=== PATIENT | female | born 1960 | race Caucasian/White ===

== ENCOUNTER 2017-09-04 13:01 | Observation (INO) | payer MEDICARE ==
[~2017-09-04 13:01] MED LIST: BACL10TA PO; BUPR300T OR; CIPR500T4 PO; CLAR10TA7 PO; CLON0.5T PO; ESTR0.059 T-DERMAL; EXAL8TAB PO; FLEX10TA PO; HYDR2TAB PO; IBUP600T26 PO; LISI-363 PO; MAXA10TA2 PO; MISC1CAP4 PO; ONDA4TAB7 PO; PROT40TA PO; SENN8.6T8 PO; URIB118C PO; VENL-39 PO; VITA500015 CHEW; [UNRECOGNIZED DRUG - CODE] PO; [UNRECOGNIZED DRUG - CODE] SC; [UNRECOGNIZED DRUG - OTHER]; [UNRECOGNIZED DRUG - REMARK] INJ
[2017-09-04 13:10] VITALS: BP 125/70; PULSE 89; RESP 20; TEMP 98.1; O2SAT 97
[2017-09-04] MEDS ORDERED: AMIT75TA2 PO (13:21)
[2017-09-04] MEDS ORDERED: BACL10TA PO (13:21)
[2017-09-04] MEDS ORDERED: VITA100064 PO (13:21)
[2017-09-04] MEDS ORDERED: LISI-515 PO (13:21)
[2017-09-04] MEDS ORDERED: PANT40TA3 PO (13:21)
[2017-09-04] MEDS ORDERED: VENL75TA2 PO (13:21)
[2017-09-04] MEDS ORDERED: BOTU100P I-DERMAL (13:21)
[2017-09-04] MEDS ORDERED: DOCU100C PO (13:21)
[2017-09-04] MEDS ORDERED: MAGN500T2 PO (13:21)
[2017-09-04] MEDS ORDERED: RIZA10TA2 PO (13:21)
[2017-09-04] MEDS ORDERED: MELA3TAB23 PO (13:21)
[2017-09-04] MEDS ORDERED: ONDA1TAB17 PO (13:21)
[2017-09-04] MEDS ORDERED: HYDR4TAB PO (13:21)
[2017-09-04] MEDS ORDERED: ESTR0.5T PO (13:21)
[2017-09-04] MEDS ORDERED: NITR100C4 PO (13:21)
[2017-09-04 13:24] VITALS: O2SAT 98
[2017-09-04] MEDS ORDERED: SODIUM CHLORIDE 0.9% FLUSH 10 ML FLUSH IVF PRN (13:30)
--- NOTE | 2017-09-04 13:37 | PD ---
HPI Chief Complaint: Chest Pain Time Seen by Provider: 13:12 Travel History International Travel<30 days: No Contact w/Intl Traveler<30days: No Traveled to known affect area: No History of Present Illness HPI The patient is a 56 yo female with PMH of interstitial nephritis, chronic pain, and GERD presenting to the ED with retrosternal chest pain radiating to the back. The patient states the pain is sharp and started this morning. She can't recall anything that makes it better or worse. She states that this pain is different than her chronic pain and it does not feel like reflux. She denies history of pancreatis and family history of GI malignancy. She denies fever, diaphoresis, palpitations, visual changes, diplopia, and new focal/neurological deficits. PMH: Interstitial nephritis, GERD, chronic pain Social: Denies alcohol, tobacco, illicit drug use Family: Denies family history of CAD Surgical: No history of heart cath, stent placement, or valve replacement PFSH Past Medical History Anxiety: Yes (PANIC ATTACKS) Depression: Yes Heart Rhythm Problems: No Cardiac Catheterization: No Cardiovascular Problems: No High Cholesterol: Yes Congestive Heart Failure: No Diabetes: No Diminished Hearing: No GERD: Yes Genitourinary: Yes (INTERSTITIAL CYSTITIS, HAS STENTS) Hiatal Hernia: Yes Hypertension: Yes Musculoskeletal: Yes (COMPOUND FRACTURE RIGHT ARM) Neurologic: Yes (SHINGLES) Integumentary: Yes (SHINGLES 06/28) Migraines: Yes ?: Not Past Surgical History Body Medical Devices: INTERCYSTICIAL CYSTITIS Section: Yes Coronary Artery Bypass Graft: No Genitourinary Surgery: Yes (BLADDER SURGERY FOR DISTENTION ) Hysterectomy: Yes () Tonsillectomy: Yes Other Surgery: Yes (implanted bilateral back stiumlators ) Social History Alcohol Use: No Tobacco Use: No Substance Use: No Allergies-Medications (Allergen,Severity, Reaction): Coded Allergies: Sulfa (Sulfonamide Antibiotics) (Unverified Allergy, Severe, BLISTERS ENTIRE BODY, 07/07/17) codeine (Unverified Allergy, Severe, MIGRAINE HEADACHE, 07/07/17) penicillin G (Unverified Allergy, Severe, BLISTERS ENTIRE BODY, 07/07/17) topiramate (Unverified Allergy, Severe, HIVE, 07/07/17) promethazine (Unverified Allergy, Mild, 07/07/17) vancomycin (Unverified Allergy, Mild, 07/07/17) morphine (Verified Allergy, Unknown, 09/04/17) adhesive (Unverified Adverse Reaction, Intermediate, BLISTERS, 07/07/17) Reported Meds & Prescriptions Reported Meds & Active Scripts Active Reported Venlafaxine ER 24 HR (Venlafaxine HCl) 75 Mg Tab 75 Mg PO DAILY Rizatriptan (Rizatriptan Benzoate) 10 Mg Tab 1 Tab PO DAILY PRN Pantoprazole (Pantoprazole Sodium) 40 Mg Tab 40 Mg PO DHS Ondansetron (Ondansetron HCl) 8 Mg Tab 8 Mg PO BID PRN Botox Inj (Onabotulinumtoxina) 100 Unit Inj 200 Units I-DERMAL EVERY 3 MONTHS Nitrofurantoin Monohydrate Macrocrystals (Nitrofurantoin Monoh/Nitrofur Macro) 100 Mg Cap 100 Mg PO BID Melatonin Cr (Melatonin) 3 Mg Tab 1 Tab PO HS Magnesium Oxide 500 Mg Tab 500 Mg PO HS Lisinopril 20 Mg Tab 20 Mg PO DAILY Hydromorphone (Hydromorphone HCl) 4 Mg Tab 4 Mg PO Q6H PRN Estradiol 0.5 Mg Tab 0.5 Mg PO DAILY Docusate Sodium 100 Mg Cap 200 Mg PO BID Vitamin D3 (Cholecalciferol) 1,000 Unit Tab 1,000 Units PO DAILY Baclofen 10 Mg Tab 10 Mg PO TID Amitriptyline (Amitriptyline HCl) 75 Mg Tab 75 Mg PO HS Review of Systems Except as stated in HPI: all other systems reviewed are Neg General / Constitutional: No: Fever Physical Exam Narrative GENERAL: WNWD, 56F, NAD SKIN: Warm and dry. HEAD: Atraumatic. Normocephalic. EYES: Pupils equal and round. No scleral icterus. No injection or drainage. ENT: No nasal bleeding or discharge. Mucous membranes pink and moist. NECK: Trachea midline. No JVD. No carotid bruits CARDIOVASCULAR: Regular rate and rhythm. S1 and S2 appreciated RESPIRATORY: No accessory muscle use. Clear to auscultation. Breath sounds equal bilaterally. GASTROINTESTINAL: Abdomen soft, non-tender, nondistended. Hepatic and splenic margins not palpable. MUSCULOSKELETAL: Extremities without clubbing, cyanosis, or edema. No obvious deformities. NEUROLOGICAL: Awake and alert. No obvious cranial nerve deficits. Motor grossly within normal limits. Five out of 5 muscle strength in the arms and legs. Normal speech. PSYCHIATRIC: Appropriate mood and affect; insight and judgment normal. Data Data Last Documented VS Vital Signs Date Time Temp Pulse Resp B/P (MAP) Pulse Ox O2 Delivery O2 Flow Rate FiO2 09/04/17 14:08 80 18 122/80 (94) 96 09/04/17 13:24 Nasal Cannula 2.00 09/04/17 13:10 98.1 VS reviewed Orders Orders Electrocardiogram (09/04/17:) Ckmb (Isoenzyme) Profile (09/04/17:) Complete Blood Count With Diff (09/04/17) Comprehensive Metabolic Panel (09/04/17) Magnesium (Mg) (09/04/17) Prothrombin Time / Inr (Pt) (09/04/17) Act Partial Throm Time (Ptt) (09/04/17) Troponin I (09/04/17:) Lipase (09/04/17:) Chest, Single Ap (09/04/17:) Ecg Monitoring (09/04/17:) Iv Access Insert/Monitor (09/04/17:) Oximetry (09/04/17:) Oxygen Administration (09/04/17) Sodium Chloride 0.9% Flush (Ns Flush) (09/04/17:30) Admit Order (Ed Use Only) (09/04/17 ) Can Doffer / Telemetry YOSHI.Q8H (09/04/17 15:09) Diet 1999 Ada Cons Carb (09/04/17 Dinner) Activity Oob With Assistance (09/04/17 15:09) Labs Laboratory Tests Test 09/04/17 13:30 White Blood Count 8.2 TH/MM3 Red Blood Count 4.62 MIL/MM3 Hemoglobin 12.4 GM/DL Hematocrit 38.3 % Mean Corpuscular Volume 82.9 FL Mean Corpuscular Hemoglobin 26.8 PG Mean Corpuscular Hemoglobin Concent 32.3 % Red Cell Distribution Width 13.1 % Platelet Count 408 TH/MM3 Mean Platelet Volume 7.9 FL Neutrophils (%) (Auto) 50.2 % Lymphocytes (%) (Auto) 43.3 % Monocytes (%) (Auto) 4.2 % Eosinophils (%) (Auto) 1.4 % Basophils (%) (Auto) 0.9 % Neutrophils # (Auto) 4.1 TH/MM3 Lymphocytes # (Auto) 3.6 TH/MM3 Monocytes # (Auto) 0.3 TH/MM3 Eosinophils # (Auto) 0.1 TH/MM3 Basophils # (Auto) 0.1 TH/MM3 CBC Comment DIFF FINAL Differential Comment Prothrombin Time 10.2 SEC Prothromb Time International Ratio 0.9 RATIO Activated Partial Thromboplast Time 26.3 SEC Blood Urea Nitrogen 11 MG/DL Creatinine 0.82 MG/DL Random Glucose 111 MG/DL Total Protein 7.8 GM/DL Albumin 3.4 GM/DL Calcium Level 8.5 MG/DL Magnesium Level 2.4 MG/DL Alkaline Phosphatase 113 U/L Aspartate Amino Transf (AST/SGOT) 17 U/L Alanine Aminotransferase (ALT/SGPT) 22 U/L Total Bilirubin 0.2 MG/DL Sodium Level 137 MEQ/L Potassium Level 3.9 MEQ/L Chloride Level 100 MEQ/L Carbon Dioxide Level 29.9 MEQ/L Anion Gap 7 MEQ/L Estimat Glomerular Filtration Rate 73 ML/MIN Total Creatine Kinase 53 U/L Troponin I LESS THAN 0.02 NG/ML Lipase 156 U/L MDM Medical Decision Making Medical Screen Exam Complete: Yes Emergency Medical Condition: Yes Medical Record Reviewed: Yes Differential Diagnosis NSTEMI, unstable angina, coronary vasospasm, PE, PTX, aortic dissection, pericarditis, myocarditis, endocarditis, PNA, esophageal disease, aneurysm, musculoskeletal etiologies, anxiety, cocaine/sympathomimetic abuse Narrative Course CBC & BMP Diagram 09/04/17 13:30 Total Protein 7.8, Albumin 3.4, Calcium Level 8.5, Magnesium Level 2.4, Alkaline Phosphatase 113, Aspartate Amino Transf (AST/SGOT) 17, Alanine Aminotransferase (ALT/SGPT) 22, Total Bilirubin 0.2 Lipase 156 Tn < 0.02 EKG: sinus, rate 82, no ischemic change CXR: [facility] chest pain center evaluation considered most reasonable next step. pt agreeable with plan d/w Dr Jang Diagnosis Primary Impression: Chest pain Qualified Codes: R07.9 - Chest pain, unspecified Admitting Information Admitting Physician Requests: Observation Wu Lamb MD Sep 04, 2017 13:37
[2017-09-04 13:45] LABS: AUTOMATED NEUTROPHIL # 4.1 TH/MM3 (1.8-7.7); BASOPHIL # 0.1 TH/MM3 (0-0.2); BASOPHIL % 0.9 % (0.0-2.0); EOSINOPHIL # 0.1 TH/MM3 (0-0.4); EOSINOPHIL % 1.4 % (0.0-4.0); HEMATOCRIT 38.3 % (35.0-46.0); HEMO FLAGS DIFF FINAL; LYMPH % 43.3 % (9.0-44.0); LYMPHOCYTE # 3.6 TH/MM3 (1.0-4.8); MEAN CELL VOLUME 82.9 FL (80.0-100.0); MEAN CORPUSCULAR HEMOGLOBIN 26.8 PG (27.0-34.0); MEAN CORPUSCULAR HGB CONC 32.3 % (32.0-36.0); MONO % 4.2 % (0.0-8.0); NEUT % 50.2 % (16.0-70.0); PLATELET COUNT 408 TH/MM3 (150-450); RED BLOOD COUNT 4.62 MIL/MM3 (4.00-5.30); RED CELL DISTRIBUTION WIDTH 13.1 % (11.6-17.2); WHITE BLOOD COUNT 8.2 TH/MM3 (4.0-11.0)
[2017-09-04 13:50] LABS: CHLORIDE 100 MEQ/L (98-107); POTASSIUM 3.9 MEQ/L (3.5-5.1); SODIUM (NA) 137 MEQ/L (136-145)
[2017-09-04 13:54] LABS: ANION GAP 7 MEQ/L (5-15); BICARBONATE 29.9 MEQ/L (21.0-32.0); BLOOD UREA NITROGEN 11 MG/DL (7-18); MAGNESIUM 2.4 MG/DL (1.5-2.5)
[2017-09-04 13:56] LABS: APTT (PATIENT) 26.3 SEC (24.3-30.1); INTERNATIONAL NORMALIZED RATIO 0.9 RATIO; PROTHROMBIN TIME - PATIENT 10.2 SEC (9.8-11.6)
[2017-09-04 13:57] LABS: ALT (GPT) 22 U/L (10-53); AST (GOT) 17 U/L (15-37); GLOMERULAR FILTRATION RATE 73 ML/MIN (>89)
[2017-09-04 13:58] LABS: TOTAL BILIRUBIN ADULT 0.2 MG/DL (0.2-1.0)
[2017-09-04 14:00] LABS: ALKALINE PHOSPHATASE 113 U/L (45-117)
[2017-09-04 14:08] VITALS: BP 122/80; PULSE 80; RESP 18; O2SAT 96
[2017-09-04 14:12] LABS: CREATINE KINASE 53 U/L (26-192)
--- NOTE | 2017-09-04 14:41 | RADRPT ---
EXAM DATE/TIME: 09/04/2017 13:53 [place] COMPARISON: No previous studies available for comparison. INDICATIONS : Chest pain for one day. MEDICAL HISTORY : None. SURGICAL HISTORY : None. ENCOUNTER: Initial ACUITY: 1 day PAIN SCORE: 6/10 LOCATION: Bilateral upper chest FINDINGS: 2 portable frontal views of the chest demonstrate the lungs to be symmetrically aerated without evide nce of mass, infiltrate or effusion. The cardiomediastinal contours are unremarkable. Osseous struc tures are intact. CONCLUSION: Normal examination. Joon Gabriel Jr., MD on September 04, 2017 at 14:40 Board Certified Radiologist. This report was verified electronically.
[2017-09-04] MEDS ORDERED: SODIUM CHLORIDE 0.9% FLUSH 10 ML FLUSH IV FLUSH PRN ×2 (15:30)
[2017-09-04 15:49] VITALS: BP 122/77; PULSE 80; RESP 16; O2SAT 98
--- NOTE | 2017-09-04 15:53 | EKG ---
Date Performed: 09/04/2017 Time Performed: 13:10:44 PTAGE: 56 years EKG: Sinus rhythm LOW QRS VOLTAGE IN PRECORDIAL LEADS POSSIBLE RIGHT VENTRICULAR CONDUCTION DELAY BORDERLINE ECG INTER PRETATION BASED ON A DEFAULT AGE OF 40 YEARS Nonspecific T wave changes No significant change from pr ior electrocardiogram. NO PREVIOUS TRACING DOCTOR: Ag Marroquin Interpretating Date/Time 09/04/2017 15:53:06
[2017-09-04] MEDS ORDERED: DOXYCYCLINE HYCLATE 100 MG CAP PO SCH (16:15)
[2017-09-04] MEDS ORDERED: LIDOCAINE HCL 5% PATCH T-DERMAL ONE (17:00)
--- NOTE | 2017-09-04 17:02 | HHI.DCPOC ---
Discharge Care Plan Diagnosis: (1) Muscle spasm of left shoulder Additional Problems Alternate between ice and heat packs for muscle spasms of the back. If you develop any new symptoms including karlene chest pain or significant shortness of breath or lightheadedness please return to the emergency room. Goals to Promote Your Health * To prevent worsening of your condition and complications * To maintain your health at the optimal level Directions to Meet Your Goals Take your medications as prescribed Follow your dietary instruction Follow activity as directed Keep your appointments as scheduled Take your immunizations and boosters as scheduled If your symptoms worsen call your PCP, if no PCP go to Urgent Care Center or Emergency Room Smoking is Dangerous to Your Health. Avoid second hand smoke Call the 24-hour hour crisis hotline for domestic abuse at Dany Chapman MD Sep 04, 2017 17:02
--- NOTE | 2017-09-04 17:13 | HHI.HP ---
[facility] Service [place] [facility] Primary Care Physician Nancy Alfredo MD Admission Diagnosis Chest Pain Diagnoses: (1) Back pain Chief Complaint: Back pain Travel History International Travel<30 Days: No Contact w/Intl Traveler <30 Da: No Traveled to Known Affected Are: No History of Present Illness Written by Arron Castellon, acting as scribe for Dr. Chapman on 09/04/17 at 17:03. 56-year-old female with known history of interstitial cystitis, hypertension, hyperlipidemia, chronic pain, chronic narcotic use, gastroesophageal reflux who presented to the hospital because of back pain. Patient states that she is in normal state of health until she woke up this morning at 11:30 AM where she was suddenly awoke with a pain of 7/10 on a pain scale in the middle of her back between her scapulas. Patient states that she took 2 aspirin without any significant improvement. The patient decided come to emergency department for evaluation and by time she got to the ER she states that the pain was 5/10 on a pain scale. Patient denied any chest pain, nausea, vomiting, shortness of breath, dyspnea, diaphoresis, radiation of pain to the chest, neck. Patient states that the pain is specifically located between her shoulder blades along her spine. There is pain with movement. Patient was not given any medication in emergency department. When evaluating the patient her pain is now down to 2/10 on a pain scale. Patient with risk factors for cardiac etiology of age hypertension, hyperlipidemia. Patient states that she has not had a cardiac workup in the past. Review of Systems Musculoskeletal: COMPLAINS OF: Back pain Except as stated in HPI: all other systems reviewed are Neg Past Family Social History Past Medical History Interstitial cystitis Hypertension Hyperlipidemia Panic attacks Gastroesophageal reflux Chronic pain Chronic narcotic use Past Surgical History Hysterectomy Cataract surgery Bladder stimulators Back stimulator Bladder surgery Tonsillectomy Reported Medications Reported Meds & Active Scripts Active Reported Venlafaxine ER 24 HR (Venlafaxine HCl) 75 Mg Tab 75 Mg PO DAILY Rizatriptan (Rizatriptan Benzoate) 10 Mg Tab 1 Tab PO DAILY PRN Pantoprazole (Pantoprazole Sodium) 40 Mg Tab 40 Mg PO DHS Ondansetron (Ondansetron HCl) 8 Mg Tab 8 Mg PO BID PRN Botox Inj (Onabotulinumtoxina) 100 Unit Inj 200 Units I-DERMAL EVERY 3 MONTHS Nitrofurantoin Monohydrate Macrocrystals (Nitrofurantoin Monoh/Nitrofur Macro) 100 Mg Cap 100 Mg PO BID Melatonin Cr (Melatonin) 3 Mg Tab 1 Tab PO HS Magnesium Oxide 500 Mg Tab 500 Mg PO HS Lisinopril 20 Mg Tab 20 Mg PO DAILY Hydromorphone (Hydromorphone HCl) 4 Mg Tab 4 Mg PO Q6H PRN Estradiol 0.5 Mg Tab 0.5 Mg PO DAILY Docusate Sodium 100 Mg Cap 200 Mg PO BID Vitamin D3 (Cholecalciferol) 1,000 Unit Tab 1,000 Units PO DAILY Baclofen 10 Mg Tab 10 Mg PO TID Amitriptyline (Amitriptyline HCl) 75 Mg Tab 75 Mg PO HS Allergies: Coded Allergies: Sulfa (Sulfonamide Antibiotics) (Unverified Allergy, Severe, BLISTERS ENTIRE BODY, 07/07/17) codeine (Unverified Allergy, Severe, MIGRAINE HEADACHE, 07/07/17) penicillin G (Unverified Allergy, Severe, BLISTERS ENTIRE BODY, 07/07/17) topiramate (Unverified Allergy, Severe, HIVE, 07/07/17) promethazine (Unverified Allergy, Mild, 07/07/17) vancomycin (Unverified Allergy, Mild, 07/07/17) morphine (Verified Allergy, Unknown, 09/04/17) adhesive (Unverified Adverse Reaction, Intermediate, BLISTERS, 07/07/17) Family History Reviewed and unremarkable Social History Patient denies any tobacco, alcohol or illicit drugs Physical Exam Vital Signs Vital Signs Date Time Temp Pulse Resp B/P (MAP) Pulse Ox O2 Delivery O2 Flow Rate FiO2 09/04/17 15:49 80 16 122/77 (92) 98 Room Air 09/04/17 14:08 80 18 122/80 (94) 96 09/04/17 13:24 98 09/04/17 13:24 Nasal Cannula 2.00 09/04/17 13:10 98.1 89 20 125/70 (88) 97 Physical Exam GENERAL: Well-developed, well-nourished, in no acute distress. alert and orientated HEENT: Head is normocephalic without any lesions or masses noted. Facial features are symmetric. Eyes: Pupils equal round reactive to light. Extraocular muscles are intact. Conjunctivae were clear. Oropharyngeal: Pharynx without any erythema edema. Tongue is midline without deviation. Buccal mucosa is moist without any masses or lesions NECK: Supple without any masses. Trachea midline no deviation. No JVD, no bruits are appreciated CARDIAC: Regular rhythm, regular rate. S1/S2 are heard. No murmurs gallops or rubs. LUNGS: Clear to auscultation bilaterally. No wheeze, rhonchi or rales. No use of accessory muscles on inspiration or expiration. ABDOMEN: Soft, nontender. Nondistended. Bowel sounds heard in all 4 quadrants. No organomegaly or masses. Negative rebound, negative guarding EXTREMITIES: No edema, pulses are equal bilaterally. No cyanosis or clubbing NEUROLOGY: Mood and affect appear appropriate. Cranial nerves II through XII grossly intact. Muscle strength 5/5 in upper and lower extremities bilaterally. Deep tendon reflexes are 2+ in upper and lower extremities bilaterally. BACK: Patient does have significant palpable tenderness noted over the paraspinal musculatures of the mid back between the shoulder blades. She does have palpable spasm and tenderness noted To left scapula. Laboratory Laboratory Tests Test 09/04/17 13:30 White Blood Count 8.2 Red Blood Count 4.62 Hemoglobin 12.4 Hematocrit 38.3 Mean Corpuscular Volume 82.9 Mean Corpuscular Hemoglobin 26.8 Mean Corpuscular Hemoglobin Concent 32.3 Red Cell Distribution Width 13.1 Platelet Count 408 Mean Platelet Volume 7.9 Neutrophils (%) (Auto) 50.2 Lymphocytes (%) (Auto) 43.3 Monocytes (%) (Auto) 4.2 Eosinophils (%) (Auto) 1.4 Basophils (%) (Auto) 0.9 Neutrophils # (Auto) 4.1 Lymphocytes # (Auto) 3.6 Monocytes # (Auto) 0.3 Eosinophils # (Auto) 0.1 Basophils # (Auto) 0.1 CBC Comment DIFF FINAL Differential Comment Prothrombin Time 10.2 Prothromb Time International Ratio 0.9 Activated Partial Thromboplast Time 26.3 Blood Urea Nitrogen 11 Creatinine 0.82 Random Glucose 111 Total Protein 7.8 Albumin 3.4 Calcium Level 8.5 Magnesium Level 2.4 Alkaline Phosphatase 113 Aspartate Amino Transf (AST/SGOT) 17 Alanine Aminotransferase (ALT/SGPT) 22 Total Bilirubin 0.2 Sodium Level 137 Potassium Level 3.9 Chloride Level 100 Carbon Dioxide Level 29.9 Anion Gap 7 Estimat Glomerular Filtration Rate 73 Total Creatine Kinase 53 Troponin I LESS THAN 0.02 Lipase 156 Result Diagram: 09/04/17 1330 09/04/17 1330 Imaging Last Impressions Chest X-Ray 09/04/17 1321 Signed Impressions: Service Date/Time: Monday, September 04, 2017 13:53 - CONCLUSION: Normal examination. MD Thomas Frank Jr. VTE Risk Assessment Thomas VTE Risk Assessment: No/Low Risk (score <= 1) Caprini Risk Assessment Model Point Value = 1 Point Value = 2 Point Value = 3 Point Value = 5 Age 41-60 Minor surgery BMI > 25 kg/m2 Swollen legs Varicose veins or History of unexplained or recurrent spontaneous Oral contraceptives or hormone replacement Sepsis (< 1 month) Serious lung disease, including pneumonia (< 1 month) Abnormal pulmonary function Acute myocardial infarction Congestive heart failure (< 1 month) History of inflammatory bowel disease Medical patient at bed rest Age 61-74 Arthroscopic surgery Major open surgery (> 45 min) Laparoscopic surgery (> 45 min) Malignancy Confined to bed (> 72 hours) Immobilizing plaster cast Central venous access Age >= 75 History of VTE Family history of VTE Factor V Leiden Prothrombin [id number] Lupus anticoagulant Anticardiolipin antibodies Elevated serum homocysteine Heparin-induced thrombocytopenia Other congenital or acquired thrombophilia Stroke (< 1 month) Elective arthroplasty Hip, pelvis, or leg fracture Acute spinal cord injury (< 1 month) Prophylaxis Regimen Total Risk Factor Score Risk Level Prophylaxis Regimen 0-1 Low Early ambulation 2 Moderate Order ONE of the following: *Sequential Compression Device (SCD) *Heparin 5000 units SQ BID 3-4 Higher Order ONE of the following medications: *Heparin 5000 units SQ TID *Enoxaparin/Lovenox 40 mg SQ daily (WT < 150 kg, CrCl > 30 mL/min) *Enoxaparin/Lovenox 30 mg SQ daily (WT < 150 kg, CrCl > 10-29 mL/min) *Enoxaparin/Lovenox 30 mg SQ BID (WT < 150 kg, CrCl > 30 mL/min) AND/OR *Sequential Compression Device (SCD) 5 or more Highest Order ONE of the following medications: *Heparin 5000 units SQ TID (Preferred with Epidurals) *Enoxaparin/Lovenox 40 mg SQ daily (WT < 150 kg, CrCl > 30 mL/min) *Enoxaparin/Lovenox 30 mg SQ daily (WT < 150 kg, CrCl > 10-29 mL/min) *Enoxaparin/Lovenox 30 mg SQ BID (WT < 150 kg, CrCl > 30 mL/min) AND *Sequential Compression Device (SCD) Assessment and Plan Assessment and Plan Back pain, musculoskeletal in nature Exam does reproduce tenderness, palpable spasms noted in the paraspinal muscles which are and next to the scapula Recommending ice and application of Lidoderm patch Continue patient's home pain medications If patient tolerates and benefits from above treatment will plan discharge home Hypertension, hyperlipidemia Continue home medications Interstitial cystitis, chronic pain Continue home medications DVT prevention Low risk, early ambulation Discharge disposition Discharge home in stable condition Activity: Ad ck. Diet: Regular diet Medications per medication reconciliation Follow-up with primary doctor in 2-3 days This note was transcribed by russell Castellon. I, Dany Chapman, personally performed the history, physical exam, and medical decision making; and confirmed the accuracy of information in the transcribed note. Authenticated by Dany Chapman on 5:59 PM on 09/04/17. I personally reviewed chest x-ray which shows no acute findings. I personally reviewed EKG which is shows no new acute changes. Patient's pain had improved significantly without any intervention from medications from the emergency room staff. She walked around the ER under nurse supervision and did not experience any chest pain or any worsening of her back pain. Patient verbalized that she wanted to go home and was feeling better and comfortable about. Patient has met maximum benefit from hospitalization and is being discharged. Problem Qualifiers (1) Back pain: Qualified Codes: M54.6 - Pain in thoracic spine Arron Castellon Sep 04, 2017 17:13 Dany Chapman MD Sep 04, 2017 18:01
[2017-09-04] MEDS ORDERED: SODIUM CHLORIDE 0.9% FLUSH 10 ML FLUSH IV FLUSH SCH ×2 (21:00)
== END 2017-09-04 18:22 | disposition home or self-care (01) ==
LOC: PHED 13:01 → PHEDA 15:10
PROVIDERS: ADMIT Hospitalist; ATTEND Hospitalist
DX: M54.6 Pain in thoracic spine (principal); R07.9 Chest pain, unspecified; N30.10 Interstitial cystitis (chronic) without hematuria; I10 Essential (primary) hypertension; E78.00 Pure hypercholesterolemia, unspecified; K21.9 Gastro-esophageal reflux disease without esophagitis; G89.29 Other chronic pain; F41.0 Panic disorder [episodic paroxysmal anxiety]; Z79.899 Other long term (current) drug therapy
CPT/HCPCS: 71010; 80053; 82550; 83690; 83735; 84484; 85025; 85610; 85730; 93005; 99285; G0378